=== PATIENT | female | born 1945 | race Hispanic/Latino ===

== ENCOUNTER → 2018-04-16 | Outpatient (CLI) | payer MEDICARE ==
[~2018-04-16] MED LIST: CALTRATE 600 W1 EACH; FOLIC ACID PO; METOPROLOL PO; SIMVASTATIN40 MG PO; VITAMIN B-1100 MG PO; VITAMIN B-121000 MCG PO; VITAMIN B-650 MG PO; WARFARIN SODIUM5 MG PO
== END ==
LOC: SLEEP 20:12
PROVIDERS: ATTEND Internal Medicine Critical Care Medicine
DX: G47.33 Obstructive sleep apnea (adult) (pediatric) (principal)
CPT/HCPCS: 95810

== ENCOUNTER → 2018-07-12 | Outpatient (CLI) | payer MEDICARE | LOC: SLEEP 20:11 | PROVIDERS: ATTEND Internal Medicine Critical Care Medicine | DX: G47.30 Sleep apnea, unspecified (principal) | CPT/HCPCS: 95811 ==